=== PATIENT | female | born 1960 | race African-American/Black ===

== ENCOUNTER 2017-12-26 16:21 | Inpatient (IN) | payer OTHER ==
[2017-12-26 17:34] VITALS: BMI 47.0
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
[2017-12-26] MEDS ORDERED: MAGNESIUM HYDROX 2400MG/30ML ORAL SUSPENSION 30 ML CUP PO PRN (20:58)
[2017-12-26] MEDS ORDERED: MAG HYDROX/AL HYDROX/SIMETH 30 ML UNIT-DOSE CUP PO PRN (20:58)
[2017-12-26] MEDS ORDERED: MENTHOL/PHENOL 1 EACH UD MM PRN (20:58)
[2017-12-26] MEDS ORDERED: P-EPHED 60MG/TRIPROLIDI 2.5MG TABLET PO PRN (20:58)
[2017-12-26] MEDS ORDERED: LOPERAMIDE HCL 2 MG CAPSULE PO PRN (20:58)
[2017-12-26] MEDS ORDERED: MAGNESIUM CITRATE 300 ML BOTTLE PO PRN (20:58)
[2017-12-26] MEDS ORDERED: NICOTINE POLACRILEX 2 MG GUM BUC PRN (20:58)
[2017-12-26] MEDS ORDERED: hydrOXYzine PAMOATE 50 MG CAPSULE (FP) PO PRN (20:58)
[2017-12-26] MEDS ORDERED: ACETAMINOPHEN 325 MG TABLET (FP) PO PRN (20:58)
[2017-12-26] MEDS ORDERED: diazePAM 5 MG TABLET PO PRN (21:10)
[2017-12-26] MEDS ORDERED: diazePAM 5 MG TABLET PO ONE (21:45)
[2017-12-26] MEDS ORDERED: MELATONIN 5 MG TABLETS PO PRN (22:00)
[2017-12-26] MEDS: diazePAM 5 MG TABLET PO SCH (22:45)
[2017-12-26] MEDS: TOLNAFTATE 1% CREAM 15 GM TUBE TP SCH (23:09)
[2017-12-26] MEDS: TOLNAFTATE 1% POWDER 45 GM POW TP SCH (23:09)
[2017-12-26] MEDS: THIAMINE HCL 100 MG TABLET (FP) PO SCH (23:10)
[2017-12-27] MEDS: diazePAM 5 MG TABLET PO SCH ×3 (06:13→22:26)
--- NOTE | 2017-12-27 06:17 | PN ---
[facility] Progress Note Note: seen for alleged fall. client reports falling out of bed landing on her knees. she denies dizziness, sob, c.p. pain, hitting her head or any injuries seen lying in bed nad obese.a/o x3 ncat, perrlA, EOMI SKIN INTACT BACK- DENIES PAIN/TENDERNESS EXTREMITIES-FROM X4 W/O LIMITATION OR PAIN Vital Signs Temperature 97.9 F 12/27/17 06:24 Pulse Rate 81 12/27/17 06:24 Respiratory Rate 20 12/27/17 06:24 Blood Pressure 104/56 12/27/17 06:24 O2 Sat by Pulse Oximetry (%) D/W CLIENT NEED FOR HEAD CT DUE TO UNWITNESSED FALL. CLIENT BECAME UPSET AND STATED THAT SHE IS NOT GOING TO THE HOSPITAL. RISK DISCUSSED TO INCLUDE INTERNAL BLEEDING AND POSSIBLE . CLIENT VERBALIZED UNDERSTANDING, SIGNED REFUSAL OF TXMENT FORM. A- ALLEGED FALL P- FALL PROTOCOL #1 HALF RAILS UP ON BED TO ASSIST WITH BED MOBILITY FALL RISK PRECAUTIONS CONT TO MONITOR CLINICALLY TYLENOL/MOTRIN FOR ANY C/O OF DELAYED PAIN
[2017-12-27] MEDS: metFORMIN HCL 500 MG TABLET (FP) PO SCH ×2 (08:00→17:14)
--- NOTE | 2017-12-27 09:47 | PN ---
BHS CIWA - CIWA Score Nausea/Vomitin-Mild Nausea/No Vomiting Muscle Tremors: 1-None Visible, but [place] Anxiety: 1-Mildly Anxious Agitation: 1-Slight > Activity Paroxysmal Sweats: 2 Orientation: 0-Oriented Tacttile Disturbances: 2-Mild Itch/Numbness/Burn Auditory Disturbances: 0-None Visual Disturbances: 0-None Headache: 0-None Present CIWA-Ar Total Score: 8 BHS Progress Note (SOAP) Subjective: i have let knee pain , interrupted sleep, Objective: 12/27/17 09:43 Vital Signs Temperature 97 F L 12/27/17 08:00 Pulse Rate 74 12/27/17 08:00 Respiratory Rate 20 12/27/17 08:00 Blood Pressure 109/63 12/27/17 08:00 O2 Sat by Pulse Oximetry (%) morbidly obese f pt lying in bed sleeping easyily aroused , responding appropriately in nad and cooperative left knee no skin changes,injuries good rom Assessment: 12/27/17 09:45 withdrawal sx's left knee pain - likely OA morbid obesity Plan: cont. detox increase fluids analgesic cream bid f/up pending labs
[2017-12-27 09:57] LABS: HEMATOCRIT 41.9 % (32.4-45.2); HEMOGLOBIN 13.9 GM/dL (10.7-15.3); MCH 31.2 pg (25.7-33.7); MCHC 33.1 g/dl (32.0-36.0); MEAN CELL VOLUME 94.1 fl (80-96); MEAN PLT VOLUME 9.4 fl (7.5-11.1); PLATELET COUNT 204 K/MM3 (134-434); RBC 4.45 M/mm3 (3.60-5.2); RDW 14.5 % (11.6-15.6); WHITE BLOOD COUNT 6.6 K/mm3 (4.0-10.0)
[2017-12-27] MEDS: TETRAHYDROZOLINE HCL EYE DROPS OU PRN (10:11)
[2017-12-27] MEDS: ENALAPRIL MALEATE 10 MG TABLET (FP) PO SCH ×2 (10:12→22:27)
[2017-12-27] MEDS: ISOSORBIDE MONONITRATE 30 MG TAB.SR.24H (FP) PO SCH (10:12)
[2017-12-27] MEDS: PRENATAL VITAMINS W/ FOLIC ACID TABLET (FP) PO SCH (10:12)
[2017-12-27] MEDS: TOLNAFTATE 1% CREAM 15 GM TUBE TP SCH ×2 (10:13→22:28)
[2017-12-27] MEDS: amLODIPine BESYLATE 10 MG TABLET (FP) PO SCH (10:13)
[2017-12-27] MEDS: FUROSEMIDE 20 MG TABLET (FP) PO SCH ×2 (10:13→22:27)
[2017-12-27] MEDS: NICOTINE 21 MG/24 HOURS TOPICAL PATCH TD SCH (10:13)
[2017-12-27] MEDS: TOLNAFTATE 1% POWDER 45 GM POW TP SCH ×2 (10:14→22:28)
[2017-12-27 10:47] LABS: CHLORIDE 105 mmol/L (98-107); POTASSIUM 4.1 mmol/L (3.5-5.1); SODIUM 142 mmol/L (136-145)
[2017-12-27 10:55] LABS: ALBUMIN 2.9 g/dl (3.4-5.0); ALK PHOS 42 U/L (45-117); ANION GAP 6 (8-16); BILIRUBIN,TOTAL 0.1 mg/dL (0.2-1.0); BLOOD UREA NITROGEN 17 mg/dL (7-18); CALCIUM 8.5 mg/dL (8.5-10.1); CO2 31 mmol/L (21-32); CREATININE 0.9 mg/dL (0.55-1.02); GLUCOSE,RANDOM 96 mg/dL (74-106); SGOT/AST 13 U/L (15-37); SGPT/ALT 18 U/L (12-78); TOT PROT 6.4 g/dl (6.4-8.2)
[2017-12-27] MEDS: METHYL SALICYLATE/MENTHOL OINT 30 GM TUBE TP SCH ×2 (11:00→22:26)
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
[2017-12-27] MEDS: BENZTROPINE MESYLATE 1 MG TABLET (FP) PO SCH (15:46)
[2017-12-27] MEDS: THIAMINE HCL 100 MG TABLET (FP) PO SCH (22:28)
[2017-12-27] MEDS: ATORVASTATIN CA 10 MG TABLET (FP) PO SCH (22:30)
[2017-12-27] MEDS: DIVALPROEX SODIUM 500 MG TABLET E.C. PO SCH (22:30)
[2017-12-28] MEDS: metFORMIN HCL 500 MG TABLET (FP) PO SCH ×2 (08:41→17:43)
--- NOTE | 2017-12-28 09:03 | EKG ---
Test Reason : Blood Pressure : / mmHG Vent. Rate : 091 BPM Atrial Rate : 091 BPM P-R Int : 124 ms QRS Dur : 074 ms QT Int : 378 ms P-R-T Axes : 073 075 014 degrees QTc Int : 464 ms POOR DATA QUALITY, INTERPRETATION MAY BE ADVERSELY AFFECTED NORMAL SINUS RHYTHM NORMAL ECG NO PREVIOUS ECGS AVAILABLE Confirmed by JOSUE BAJWA MD ([id number]) on 12/28/2017 9:03:29 AM Referred By: Confirmed By:JOSUE BAJWA MD
[2017-12-28 10:29] LABS: URINE APPEARANCE SLCLOUDY; URINE BILIRUBIN NEGATIVE (<2.0 mg/dL); URINE COLOR LTYELLOW; URINE GLUCOSE (UA) NEGATIVE (NEGATIVE); URINE KETONE NEGATIVE (NEGATIVE); URINE LEUK ESTERASE NEGATIVE (NEGATIVE); URINE NITRITE NEGATIVE (NEGATIVE); URINE PROTEIN NEGATIVE (NEGATIVE)
[2017-12-28] MEDS: PRENATAL VITAMINS W/ FOLIC ACID TABLET (FP) PO SCH (10:49)
[2017-12-28] MEDS: DIVALPROEX SODIUM 500 MG TABLET E.C. PO SCH ×2 (10:49→22:21)
[2017-12-28] MEDS: diazePAM 5 MG TABLET PO SCH ×2 (10:49→22:17)
[2017-12-28] MEDS: FUROSEMIDE 20 MG TABLET (FP) PO SCH ×2 (10:49→22:17)
[2017-12-28] MEDS: amLODIPine BESYLATE 10 MG TABLET (FP) PO SCH (10:49)
[2017-12-28] MEDS: METHYL SALICYLATE/MENTHOL OINT 30 GM TUBE TP SCH ×2 (10:49→22:19)
[2017-12-28] MEDS: ENALAPRIL MALEATE 10 MG TABLET (FP) PO SCH ×2 (10:49→22:15)
[2017-12-28] MEDS: ISOSORBIDE MONONITRATE 30 MG TAB.SR.24H (FP) PO SCH (10:49)
[2017-12-28] MEDS: BENZTROPINE MESYLATE 1 MG TABLET (FP) PO SCH (10:49)
[2017-12-28] MEDS: TOLNAFTATE 1% CREAM 15 GM TUBE TP SCH ×2 (10:50→23:34)
[2017-12-28] MEDS: NICOTINE 21 MG/24 HOURS TOPICAL PATCH TD SCH (10:50)
[2017-12-28] MEDS: TOLNAFTATE 1% POWDER 45 GM POW TP SCH ×2 (10:50→23:34)
--- NOTE | 2017-12-28 13:57 | PN ---
S CIWA - CIWA Score Nausea/Vomitin Muscle Tremors: 3 Anxiety: 3 Agitation: 2 Paroxysmal Sweats: 1-Minimal Palms Moist Orientation: 0-Oriented Tacttile Disturbances: 1-Very Mild Itch/Numbness Auditory Disturbances: 1-Very Mild Visual Disturbances: 0-None Headache: 2-Mild CIWA-Ar Total Score: 16 BHS Progress Note (SOAP) Subjective: alert,irritable,anxious,interrupted sleep,tremor Objective: 12/28/17 13:56 Vital Signs Temperature 98.6 F 12/28/17 10:05 Pulse Rate 77 12/28/17 10:05 Respiratory Rate 16 12/28/17 10:05 Blood Pressure 147/60 12/28/17 10:05 O2 Sat by Pulse Oximetry (%) Laboratory Last Values WBC 6.6 K/mm3 (4.0-10.0) 12/27/17 07:40 RBC 4.45 M/mm3 (3.60-5.2) 12/27/17 07:40 Hgb 13.9 GM/dL (10.7-15.3) 12/27/17 07:40 Hct 41.9 % (32.4-45.2) 12/27/17 07:40 MCV 94.1 fl (80-96) 12/27/17 07:40 MCH 31.2 pg (25.7-33.7) 12/27/17 07:40 MCHC 33.1 g/dl (32.0-36.0) 12/27/17 07:40 RDW 14.5 % (11.6-15.6) 12/27/17 07:40 Plt Count 204 K/MM3 (134-434) 12/27/17 07:40 MPV 9.4 fl (7.5-11.1) D 12/27/17 07:40 Sodium 142 mmol/L (136-145) 12/27/17 07:40 Potassium 4.1 mmol/L (3.5-5.1) 12/27/17 07:40 Chloride 105 mmol/L (98-107) 12/27/17 07:40 Carbon Dioxide 31 mmol/L (21-32) 12/27/17 07:40 Anion Gap 6 (8-16) L 12/27/17 07:40 BUN 17 mg/dL (7-18) 12/27/17 07:40 Creatinine 0.9 mg/dL (0.55-1.02) 12/27/17 07:40 Creat Clearance w eGFR > 60 (>60) 12/27/17 07:40 POC Glucometer 105 UNITS (80-120) 12/28/17 11:05 Random Glucose 96 mg/dL (74-106) 12/27/17 07:40 Calcium 8.5 mg/dL (8.5-10.1) 12/27/17 07:40 Total Bilirubin 0.1 mg/dL (0.2-1.0) L 12/27/17 07:40 AST 13 U/L (15-37) L 12/27/17 07:40 ALT 18 U/L (12-78) 12/27/17 07:40 Alkaline Phosphatase 42 U/L (45-117) L 12/27/17 07:40 Total Protein 6.4 g/dl (6.4-8.2) 12/27/17 07:40 Albumin 2.9 g/dl (3.4-5.0) L 12/27/17 07:40 Urine Color Ltyellow 12/28/17 09:00 Urine Appearance Slcloudy 12/28/17 09:00 Urine pH 7.0 (5.0-8.0) 12/28/17 09:00 Ur Specific [place] 1.012 (1.001-1.035) 12/28/17 09:00 Urine Protein Negative (NEGATIVE) 12/28/17 09:00 Urine Glucose (UA) Negative (NEGATIVE) 12/28/17 09:00 Urine Ketones Negative (NEGATIVE) 12/28/17 09:00 Urine Blood Negative (NEGATIVE) 12/28/17 09:00 Urine Nitrite Negative (NEGATIVE) 12/28/17 09:00 Urine Bilirubin Negative (<2.0 mg/dL) 12/28/17 09:00 Urine Urobilinogen 2.0 mg/dL (0.2-1.0) H 12/28/17 09:00 Ur Leukocyte Esterase Negative (NEGATIVE) 12/28/17 09:00 Valproic Acid 21.8 ug/ml (50-100) L 12/28/17 08:00 Assessment: 12/28/17 13:57 withdrawal symptom Plan: continue detox,bgm monitoring
[2017-12-28] MEDS: THIAMINE HCL 100 MG TABLET (FP) PO SCH (22:15)
[2017-12-28] MEDS: ATORVASTATIN CA 10 MG TABLET (FP) PO SCH (22:17)
[2017-12-28] MEDS: IBUPROFEN 400 MG TABLET (FP) PO PRN (22:18)
[2017-12-29] MEDS: metFORMIN HCL 500 MG TABLET (FP) PO SCH ×2 (06:27→17:18)
[2017-12-29] MEDS: diazePAM 5 MG TABLET PO SCH ×2 (10:27→22:22)
[2017-12-29] MEDS: amLODIPine BESYLATE 10 MG TABLET (FP) PO SCH (10:28)
[2017-12-29] MEDS: DIVALPROEX SODIUM 500 MG TABLET E.C. PO SCH ×2 (10:28→22:22)
[2017-12-29] MEDS: ENALAPRIL MALEATE 10 MG TABLET (FP) PO SCH ×2 (10:28→22:22)
[2017-12-29] MEDS: ISOSORBIDE MONONITRATE 30 MG TAB.SR.24H (FP) PO SCH (10:28)
[2017-12-29] MEDS: BENZTROPINE MESYLATE 1 MG TABLET (FP) PO SCH (10:28)
[2017-12-29] MEDS: FUROSEMIDE 20 MG TABLET (FP) PO SCH ×2 (10:28→22:22)
[2017-12-29] MEDS: TOLNAFTATE 1% CREAM 15 GM TUBE TP SCH ×2 (10:29→22:23)
[2017-12-29] MEDS: NICOTINE 21 MG/24 HOURS TOPICAL PATCH TD SCH (10:29)
[2017-12-29] MEDS: METHYL SALICYLATE/MENTHOL OINT 30 GM TUBE TP SCH ×2 (10:29→22:23)
[2017-12-29] MEDS: TOLNAFTATE 1% POWDER 45 GM POW TP SCH ×2 (10:29→22:23)
[2017-12-29] MEDS: PRENATAL VITAMINS W/ FOLIC ACID TABLET (FP) PO SCH (10:30)
[2017-12-29] MEDS: guaiFENesin/D-METHORPHAN HB 10 ML UNIT-DOSE CUPS PO PRN ×2 (10:32→22:26)
--- NOTE | 2017-12-29 14:08 | PN ---
[facility] Progress Note (SOAP) Subjective: feeling better less sweat no tremor no gi distress less anxiousness Objective: 12/29/17 14:07 Vital Signs Temperature 98.1 F 12/29/17 10:53 Pulse Rate 84 12/29/17 10:53 Respiratory Rate 18 12/29/17 10:53 Blood Pressure 124/58 12/29/17 10:53 O2 Sat by Pulse Oximetry (%) Laboratory Last Values WBC 6.6 K/mm3 (4.0-10.0) 12/27/17 07:40 RBC 4.45 M/mm3 (3.60-5.2) 12/27/17 07:40 Hgb 13.9 GM/dL (10.7-15.3) 12/27/17 07:40 Hct 41.9 % (32.4-45.2) 12/27/17 07:40 MCV 94.1 fl (80-96) 12/27/17 07:40 MCH 31.2 pg (25.7-33.7) 12/27/17 07:40 MCHC 33.1 g/dl (32.0-36.0) 12/27/17 07:40 RDW 14.5 % (11.6-15.6) 12/27/17 07:40 Plt Count 204 K/MM3 (134-434) 12/27/17 07:40 MPV 9.4 fl (7.5-11.1) D 12/27/17 07:40 Sodium 142 mmol/L (136-145) 12/27/17 07:40 Potassium 4.1 mmol/L (3.5-5.1) 12/27/17 07:40 Chloride 105 mmol/L (98-107) 12/27/17 07:40 Carbon Dioxide 31 mmol/L (21-32) 12/27/17 07:40 Anion Gap 6 (8-16) L 12/27/17 07:40 BUN 17 mg/dL (7-18) 12/27/17 07:40 Creatinine 0.9 mg/dL (0.55-1.02) 12/27/17 07:40 Creat Clearance w eGFR > 60 (>60) 12/27/17 07:40 POC Glucometer 94 UNITS (80-120) 12/29/17 05:45 Random Glucose 96 mg/dL (74-106) 12/27/17 07:40 Calcium 8.5 mg/dL (8.5-10.1) 12/27/17 07:40 Total Bilirubin 0.1 mg/dL (0.2-1.0) L 12/27/17 07:40 AST 13 U/L (15-37) L 12/27/17 07:40 ALT 18 U/L (12-78) 12/27/17 07:40 Alkaline Phosphatase 42 U/L (45-117) L 12/27/17 07:40 Total Protein 6.4 g/dl (6.4-8.2) 12/27/17 07:40 Albumin 2.9 g/dl (3.4-5.0) L 12/27/17 07:40 Urine Color Ltyellow 12/28/17 09:00 Urine Appearance Slcloudy 12/28/17 09:00 Urine pH 7.0 (5.0-8.0) 12/28/17 09:00 Ur Specific [place] 1.012 (1.001-1.035) 12/28/17 09:00 Urine Protein Negative (NEGATIVE) 12/28/17 09:00 Urine Glucose (UA) Negative (NEGATIVE) 12/28/17 09:00 Urine Ketones Negative (NEGATIVE) 12/28/17 09:00 Urine Blood Negative (NEGATIVE) 12/28/17 09:00 Urine Nitrite Negative (NEGATIVE) 12/28/17 09:00 Urine Bilirubin Negative (<2.0 mg/dL) 12/28/17 09:00 Urine Urobilinogen 2.0 mg/dL (0.2-1.0) H 12/28/17 09:00 Ur Leukocyte Esterase Negative (NEGATIVE) 12/28/17 09:00 Valproic Acid 21.8 ug/ml (50-100) L 12/28/17 08:00 RPR Titer Nonreactive (NONREACTIVE) 12/27/17 07:40 lab noted Assessment: 12/29/17 14:07 mild withdrawal sx Plan: medically supervised detox
[2017-12-29] MEDS: ATORVASTATIN CA 10 MG TABLET (FP) PO SCH (22:22)
[2017-12-29] MEDS: THIAMINE HCL 100 MG TABLET (FP) PO SCH (22:22)
[2017-12-29] MEDS: IBUPROFEN 400 MG TABLET (FP) PO PRN (22:24)
[2017-12-30] MEDS: metFORMIN HCL 500 MG TABLET (FP) PO SCH (06:40)
[2017-12-30] MEDS: IBUPROFEN 400 MG TABLET (FP) PO PRN (06:42)
[2017-12-30] MEDS: guaiFENesin/D-METHORPHAN HB 10 ML UNIT-DOSE CUPS PO PRN (06:44)
--- NOTE | 2017-12-30 09:50 | PN ---
S Progress Note (SOAP) Subjective: alert,no complaint Objective: 12/30/17 09:46 Vital Signs Temperature 97.9 F 12/30/17 07:13 Pulse Rate 73 12/30/17 07:13 Respiratory Rate 18 12/30/17 07:13 Blood Pressure 127/72 12/30/17 07:13 O2 Sat by Pulse Oximetry (%) Assessment: 12/30/17 09:48 detox completed no withdrawal symptom Plan: discharge today,follow up with [facility] as arrangement
--- NOTE | 2017-12-30 09:56 | DS ---
[facility] Detox Discharge Summary Admission Date: 12/26/17 Discharge Date: 12/30/17 - History Present History: Alcohol Dependence, Cocaine Dependence Additional Comments: follow up with [facility] as arrangement Pertinent Past History: type 2 dm hypertension morbid obesity osteoarthritis schizophrenia - Physical Exam Results Vital Signs: Vital Signs Temperature 97.9 F 12/30/17 07:13 Pulse Rate 73 12/30/17 07:13 Respiratory Rate 18 12/30/17 07:13 Blood Pressure 127/72 12/30/17 07:13 O2 Sat by Pulse Oximetry (%) Pertinent Admission Physical Exam Findings: withdrawal symptom Laboratory Last Values WBC 6.6 K/mm3 (4.0-10.0) 12/27/17 07:40 RBC 4.45 M/mm3 (3.60-5.2) 12/27/17 07:40 Hgb 13.9 GM/dL (10.7-15.3) 12/27/17 07:40 Hct 41.9 % (32.4-45.2) 12/27/17 07:40 MCV 94.1 fl (80-96) 12/27/17 07:40 MCH 31.2 pg (25.7-33.7) 12/27/17 07:40 MCHC 33.1 g/dl (32.0-36.0) 12/27/17 07:40 RDW 14.5 % (11.6-15.6) 12/27/17 07:40 Plt Count 204 K/MM3 (134-434) 12/27/17 07:40 MPV 9.4 fl (7.5-11.1) D 12/27/17 07:40 Sodium 142 mmol/L (136-145) 12/27/17 07:40 Potassium 4.1 mmol/L (3.5-5.1) 12/27/17 07:40 Chloride 105 mmol/L (98-107) 12/27/17 07:40 Carbon Dioxide 31 mmol/L (21-32) 12/27/17 07:40 Anion Gap 6 (8-16) L 12/27/17 07:40 BUN 17 mg/dL (7-18) 12/27/17 07:40 Creatinine 0.9 mg/dL (0.55-1.02) 12/27/17 07:40 Creat Clearance w eGFR > 60 (>60) 12/27/17 07:40 POC Glucometer 113 UNITS (80-120) 12/30/17 06:37 Random Glucose 96 mg/dL (74-106) 12/27/17 07:40 Calcium 8.5 mg/dL (8.5-10.1) 12/27/17 07:40 Total Bilirubin 0.1 mg/dL (0.2-1.0) L 12/27/17 07:40 AST 13 U/L (15-37) L 12/27/17 07:40 ALT 18 U/L (12-78) 12/27/17 07:40 Alkaline Phosphatase 42 U/L (45-117) L 12/27/17 07:40 Total Protein 6.4 g/dl (6.4-8.2) 12/27/17 07:40 Albumin 2.9 g/dl (3.4-5.0) L 12/27/17 07:40 Urine Color Ltyellow 12/28/17 09:00 Urine Appearance Slcloudy 12/28/17 09:00 Urine pH 7.0 (5.0-8.0) 12/28/17 09:00 Ur Specific [place] 1.012 (1.001-1.035) 12/28/17 09:00 Urine Protein Negative (NEGATIVE) 12/28/17 09:00 Urine Glucose (UA) Negative (NEGATIVE) 12/28/17 09:00 Urine Ketones Negative (NEGATIVE) 12/28/17 09:00 Urine Blood Negative (NEGATIVE) 12/28/17 09:00 Urine Nitrite Negative (NEGATIVE) 12/28/17 09:00 Urine Bilirubin Negative (<2.0 mg/dL) 12/28/17 09:00 Urine Urobilinogen 2.0 mg/dL (0.2-1.0) H 12/28/17 09:00 Ur Leukocyte Esterase Negative (NEGATIVE) 12/28/17 09:00 Valproic Acid 21.8 ug/ml (50-100) L 12/28/17 08:00 RPR Titer Nonreactive (NONREACTIVE) 12/27/17 07:40 Vital Signs Temperature 97.9 F 12/30/17 07:13 Pulse Rate 73 12/30/17 07:13 Respiratory Rate 18 12/30/17 07:13 Blood Pressure 127/72 12/30/17 07:13 O2 Sat by Pulse Oximetry (%) - Treatment Hospital Course: Detox Protocol Followed - Medication Discharge Medications: Ambulatory Orders Benztropine Mesylate 1 mg PO DAILY 12/26/17 Benztropine Mesylate 2 mg PO HS 12/26/17 Amlodipine Besylate [Norvasc -] 10 mg PO DAILY #30 tablet 12/29/17 Atorvastatin Ca [Lipitor] 10 mg PO HS #60 tablet 12/29/17 Enalapril Maleate [Vasotec] 20 mg PO BID #60 tablet 12/29/17 Furosemide 20 mg PO BID #30 tablet 12/29/17 Isosorbide Mononitrate [Imdur -] 30 mg PO DAILY #60 tab.sr.24h 12/29/17 metFORMIN HCL [Glucophage -] 500 mg PO BIDI #60 tablet 12/29/17 - Diagnosis (1) Alcohol dependence with uncomplicated withdrawal Current Visit: Yes Status: Chronic (2) Cocaine dependence Current Visit: Yes Status: Chronic (3) HTN (hypertension) Current Visit: Yes Status: Chronic Qualifiers: Hypertension type: essential hypertension Qualified Code(s): I10 - Essential (primary) hypertension (4) Osteoarthritis Current Visit: Yes Status: Chronic (5) Obesity Current Visit: No Status: Active (6) Schizoaffective disorder Current Visit: No Status: Chronic (7) Hyperlipidemia Current Visit: Yes Status: Chronic Qualifiers: Hyperlipidemia type: unspecified Qualified Code(s): E78.5 - Hyperlipidemia , unspecified (8) Nicotine dependence Current Visit: Yes Status: Chronic (9) Type II diabetes mellitus Current Visit: Yes Status: Chronic Qualifiers: Diabetes mellitus complication status: with unspecified complications - AMA Did Patient Leave Against Medical Advice: No
[2017-12-30 09:57] VITALS: BP 108/55; PULSE 80; TEMP 98.2
[2017-12-30] MEDS ORDERED: diazePAM 5 MG TABLET PO SCH (10:00)
[2017-12-30] MEDS: DIVALPROEX SODIUM 500 MG TABLET E.C. PO SCH (10:13)
[2017-12-30] MEDS: BENZTROPINE MESYLATE 1 MG TABLET (FP) PO SCH (10:13)
[2017-12-30] MEDS: FUROSEMIDE 20 MG TABLET (FP) PO SCH (10:14)
[2017-12-30] MEDS: TOLNAFTATE 1% POWDER 45 GM POW TP SCH (10:14)
[2017-12-30] MEDS: TOLNAFTATE 1% CREAM 15 GM TUBE TP SCH (10:14)
[2017-12-30] MEDS: PRENATAL VITAMINS W/ FOLIC ACID TABLET (FP) PO SCH (10:14)
[2017-12-30] MEDS: ENALAPRIL MALEATE 10 MG TABLET (FP) PO SCH (10:14)
[2017-12-30] MEDS: amLODIPine BESYLATE 10 MG TABLET (FP) PO SCH (10:14)
[2017-12-30] MEDS: ISOSORBIDE MONONITRATE 30 MG TAB.SR.24H (FP) PO SCH (10:15)
[2017-12-30] MEDS: NICOTINE 21 MG/24 HOURS TOPICAL PATCH TD SCH (10:15)
[2017-12-30] MEDS: TETRAHYDROZOLINE HCL EYE DROPS OU PRN (10:16)
[2017-12-30] MEDS: METHYL SALICYLATE/MENTHOL OINT 30 GM TUBE TP SCH (10:26)
== END 2017-12-30 12:42 | disposition other institution (70) | DRG 774 ==
LOC: YASAS 16:21 → Y6N 21:41
PROVIDERS: ADMIT Surgery; ATTEND Surgery
PROC: HZ2ZZZZ Detoxification Services for Substance Abuse Treatment (ICD-10-PCS; principal; 2017-12-26)
DX: F10.230 Alcohol dependence with withdrawal, uncomplicated (principal); F14.20 Cocaine dependence, uncomplicated; F17.210 Nicotine dependence, cigarettes, uncomplicated; F25.9 Schizoaffective disorder, unspecified; I10 Essential (primary) hypertension; E11.9 Type 2 diabetes mellitus without complications; R01.1 Cardiac murmur, unspecified; M19.90 Unspecified osteoarthritis, unspecified site; E78.5 Hyperlipidemia, unspecified; B35.3 Tinea pedis; H10.13 Acute atopic conjunctivitis, bilateral; E66.01 Morbid (severe) obesity due to excess calories; Z68.42 Body mass index [BMI] 45.0-49.9, adult; Z90.710 Acquired absence of both cervix and uterus; W06.XXXA Fall from bed, initial encounter; Z91.81 History of falling; Y93.89 Activity, other specified; Y92.230 Patient room in hospital as the place of occurrence of the external cause; Z91.5 Personal history of self-harm
CPT/HCPCS: 36415; 80053; 80164; 81003; 82962; 85027; 86593; 93005; 93010

== ENCOUNTER 2017-12-30 13:38 | Inpatient (IN) | payer OTHER ==
[2017-12-30] MEDS ORDERED: guaiFENesin/D-METHORPHAN HB 10 ML UNIT-DOSE CUPS PO PRN (14:09)
[2017-12-30] MEDS ORDERED: MENTHOL/PHENOL 1 EACH UD MM PRN (14:09)
[2017-12-30] MEDS ORDERED: LOPERAMIDE HCL 2 MG CAPSULE PO PRN (14:09)
[2017-12-30] MEDS ORDERED: MAGNESIUM HYDROX 2400MG/30ML ORAL SUSPENSION 30 ML CUP PO PRN (14:09)
[2017-12-30] MEDS ORDERED: MAG HYDROX/AL HYDROX/SIMETH 30 ML UNIT-DOSE CUP PO PRN (14:09)
[2017-12-30] MEDS ORDERED: hydrOXYzine PAMOATE 50 MG CAPSULE (FP) PO PRN (14:09)
[2017-12-30] MEDS ORDERED: MAGNESIUM CITRATE 300 ML BOTTLE PO PRN (14:09)
[2017-12-30] MEDS ORDERED: IBUPROFEN 400 MG TABLET (FP) PO PRN (14:09)
[2017-12-30] MEDS ORDERED: ACETAMINOPHEN 325 MG TABLET (FP) PO PRN (14:09)
[2017-12-30] MEDS ORDERED: P-EPHED 60MG/TRIPROLIDI 2.5MG TABLET PO PRN (14:09)
[2017-12-30] MEDS: metFORMIN HCL 500 MG TABLET (FP) PO SCH (16:50)
[2017-12-30] MEDS ORDERED: FUROSEMIDE 20 MG TABLET (FP) PO ONE (17:00)
--- NOTE | 2017-12-30 17:14 | HP ---
Psychiatrist Admission - Data Date of interview: 12/30/17 Admission source: [address] [place] [address] Identifying data: This is the second admission to [address] [place] [address] for this 57 yo AA female mother of 4,unemployed,supported by [facility], domiciled. Medical History: Significant for Obesity,HTN. Psychiatric History: Poor historian,but well known to this facility.Long and extensive psychiatric history started back in 1984.patient was dx with Schizoaffective disorder.Multiple psychiatric hospitalizations.She is under care of [facility],on Risperdal Consta 50 mg im every other week,next injection scheduled for Jan 01.She is on Cogentin 1 mg po daily and Depakote 500 mg po bid. Physical/Sexual Abuse/Trauma History: not willing to discuss Additional Comment: denies Allergies/Adverse Reactions: Allergies Allergy/AdvReac Type Severity Reaction Status Date / Time haloperidol Allergy Severe Difficulty Verified 12/26/17 22:28 Breathing Date of last physical exam: 12/26/17 Concur with the findings of this exam: Yes - Substance Abuse/Tx History Hx Alcohol Use: Yes (drinking since 16 yo,beer) Hx Substance Use: Yes (cocain e since 26 yo,spending about $150-200 daily) Substance Use Type: Alcohol, Cocaine Hx Substance Use Treatment: Yes (completed this program in July 2014) Mental Status Exam - Mental Status Exam Alert and Oriented to: Time, Place, Person Cognitive Function: Grossly Intact Patient Appearance: Unkempt Affect: Mood Congruent Patient Behavior: Passive, Cooperative Speech Pattern: Clear Voice Loudness: Normal Thought Process: Goal Oriented Thought Disorder: Not Present Hallucinations: Denies Suicidal Ideation: Denies Homicidal Ideation: Denies Insight/Judgement: Fair Sleep: Fair Appetite: Good Muscle strength/Tone: Normal Gait/Station: Normal Psychiatric Findings - Problem List ([place] 1, 2,3) (1) Alcohol dependence Current Visit: Yes Status: Chronic (2) Obesity Current Visit: Yes Status: Chronic (3) Allergic conjunctivitis Current Visit: Yes Status: Chronic Qualifiers: (4) Cocaine dependence Current Visit: Yes Status: Chronic (5) HTN (hypertension) Current Visit: Yes Status: Chronic Qualifiers: (6) Hyperlipidemia Current Visit: Yes Status: Chronic Qualifiers: (7) Schizoaffective disorder Current Visit: Yes Status: Chronic (8) Nicotine dependence Current Visit: Yes Status: Chronic (9) Obesity, morbid (more than 100 lbs over ideal weight or BMI > 40) Current Visit: Yes Status: Chronic (10) Osteoarthritis Current Visit: No Status: Chronic (11) Tinea pedis of both feet Current Visit: Yes Status: Chronic (12) Type II diabetes mellitus Current Visit: Yes Status: Chronic Qualifiers: Diabetes mellitus complication status: with unspecified complications - Initial Treatment Plan Initial Treatment Plan: Continue Depakote 500 mg po bid,Cogentin 1 mg po daily.
[2017-12-30] MEDS: DIVALPROEX SODIUM 500 MG TABLET E.C. PO SCH (21:45)
[2017-12-30] MEDS: THIAMINE HCL 100 MG TABLET (FP) PO SCH (21:45)
[2017-12-30] MEDS: ATORVASTATIN CA 10 MG TABLET (FP) PO SCH (21:45)
[2017-12-30] MEDS: ENALAPRIL MALEATE 10 MG TABLET (FP) PO SCH (21:47)
[2017-12-30] MEDS ORDERED: MELATONIN 5 MG TABLETS PO PRN (22:00)
[2017-12-31] MEDS: metFORMIN HCL 500 MG TABLET (FP) PO SCH ×2 (06:48→16:45)
[2017-12-31] MEDS: FUROSEMIDE 20 MG TABLET (FP) PO SCH ×2 (06:48→13:38)
[2017-12-31] MEDS: DIVALPROEX SODIUM 500 MG TABLET E.C. PO SCH ×2 (10:20→21:44)
[2017-12-31] MEDS: PRENATAL VITAMINS W/ FOLIC ACID TABLET (FP) PO SCH (10:20)
[2017-12-31] MEDS: amLODIPine BESYLATE 10 MG TABLET (FP) PO SCH (10:20)
[2017-12-31] MEDS: BENZTROPINE MESYLATE 1 MG TABLET (FP) PO SCH (10:20)
[2017-12-31] MEDS ORDERED: PT OWN MED DRAWER 7, Y5N ONE ×2 (10:21→21:46)
[2017-12-31] MEDS: ENALAPRIL MALEATE 10 MG TABLET (FP) PO SCH ×2 (10:22→21:44)
[2017-12-31] MEDS: ISOSORBIDE MONONITRATE 30 MG TAB.SR.24H (FP) PO SCH (10:22)
[2017-12-31] MEDS: THIAMINE HCL 100 MG TABLET (FP) PO SCH (21:44)
[2017-12-31] MEDS: ATORVASTATIN CA 10 MG TABLET (FP) PO SCH (21:44)
[2018-01-01] MEDS: FUROSEMIDE 20 MG TABLET (FP) PO SCH (06:52)
[2018-01-01] MEDS: metFORMIN HCL 500 MG TABLET (FP) PO SCH (06:54)
[2018-01-01 06:55] VITALS: TEMP 97.2
[2018-01-01] MEDS ORDERED: PT OWN MED DRAWER 7, Y5N ONE (08:42)
[2018-01-01] MEDS: DIVALPROEX SODIUM 500 MG TABLET E.C. PO SCH (09:05)
[2018-01-01] MEDS: ENALAPRIL MALEATE 10 MG TABLET (FP) PO SCH (09:05)
[2018-01-01] MEDS: PRENATAL VITAMINS W/ FOLIC ACID TABLET (FP) PO SCH (09:05)
[2018-01-01] MEDS: amLODIPine BESYLATE 10 MG TABLET (FP) PO SCH (09:05)
[2018-01-01] MEDS: ISOSORBIDE MONONITRATE 30 MG TAB.SR.24H (FP) PO SCH (09:05)
[2018-01-01] MEDS: BENZTROPINE MESYLATE 1 MG TABLET (FP) PO SCH (09:05)
[2018-01-01 09:24] VITALS: BP 134/62; PULSE 90
--- NOTE | 2018-01-01 10:19 | PN ---
[facility] Progress Note Note: Patient decided to sign out today.See counselour's note for details.Patient received injection of Risperdal 50 mg ,next will be scheduled in 2 weeks.
== END 2018-01-01 09:30 | disposition left against medical advice (07) | DRG 770 ==
LOC: YASAS 13:38 → Y3E 13:40
PROVIDERS: ADMIT Psychiatry & Neurology Psychiatry; ATTEND Psychiatry & Neurology Psychiatry
PROC: HZ42ZZZ Group Counseling for Substance Abuse Treatment, Cognitive-Behavioral (ICD-10-PCS; principal; 2017-12-30)
DX: F10.20 Alcohol dependence, uncomplicated (principal); F14.20 Cocaine dependence, uncomplicated; F17.210 Nicotine dependence, cigarettes, uncomplicated; F25.9 Schizoaffective disorder, unspecified; I10 Essential (primary) hypertension; E78.5 Hyperlipidemia, unspecified; E11.8 Type 2 diabetes mellitus with unspecified complications; M19.90 Unspecified osteoarthritis, unspecified site; H10.45 Other chronic allergic conjunctivitis; B35.3 Tinea pedis; E66.01 Morbid (severe) obesity due to excess calories; Z68.43 Body mass index [BMI] 50.0-59.9, adult; Z79.84 Long term (current) use of oral hypoglycemic drugs
CPT/HCPCS: 36415; 82962; 87389

== ENCOUNTER 2021-11-30 15:35 | Inpatient (IN) | payer OTHER ==
[2021-11-30] MEDS ORDERED: LOPERAMIDE HCL 2 MG CAPSULE PO PRN (18:10)
[2021-11-30] MEDS ORDERED: METHOCARBAMOL 500 MG TABLET PO PRN (18:10)
[2021-11-30] MEDS ORDERED: MAG HYDROX/AL HYDROX/SIMETH 30 ML UNIT-DOSE CUP PO PRN (18:10)
[2021-11-30] MEDS ORDERED: ACETAMINOPHEN 325 MG TABLET (FP) PO PRN ×2 (18:10)
[2021-11-30] MEDS ORDERED: BISMUTH SUBSALICYLATE 524 MG/30 ML PO PRN (18:10)
[2021-11-30] MEDS ORDERED: BENZOCAINE/MENTHOL (CHLORASEPTIC ) LOZENGE MM PRN (18:10)
[2021-11-30] MEDS ORDERED: MAGNESIUM CITRATE 300 ML BOTTLE PO PRN (18:10)
[2021-11-30] MEDS ORDERED: MAGNESIUM HYDROX 2400MG/30ML ORAL SUSPENSION 30 ML CUP PO PRN (18:10)
[2021-11-30] MEDS ORDERED: IBUPROFEN 600 MG TABLET (FP) PO PRN (18:10)
[2021-11-30] MEDS ORDERED: ONDANSETRON *ODT* 4 MG TABLET SL PRN (18:10)
[2021-11-30] MEDS ORDERED: DICYCLOMINE HCL 10 MG CAPSULE PO PRN (18:10)
[2021-11-30] MEDS ORDERED: NICOTINE 10 MG CARTRIDGE (INHALER) IH PRN (18:10)
[2021-11-30] MEDS ORDERED: hydrOXYzine PAMOATE 25 MG CAPSULE (FP) PO PRN (18:10)
[2021-11-30] MEDS ORDERED: LORazepam 1 MG TABLET PO PRN (18:10)
[2021-11-30] MEDS ORDERED: IBUPROFEN 400 MG TABLET (FP) PO PRN (18:10)
[2021-11-30] MEDS: THIAMINE HCL 100 MG TABLET (FP) PO SCH (23:27)
[2021-11-30] MEDS: LORazepam 2 MG TABLET PO SCH (23:27)
[2021-11-30] MEDS: ENALAPRIL MALEATE 10 MG TABLET PO SCH (23:27)
[2021-11-30] MEDS: MELATONIN 5 MG TABLETS PO SCH (23:27)
[2021-11-30] MEDS: ATORVASTATIN CA 10 MG TABLET (FP) PO SCH (23:27)
[2021-11-30] MEDS: NYSTATIN 100,000 UNIT/GM TOPICAL CREAM 15 GM TUBE TP SCH (23:59)
[2021-12-01] MEDS: LORazepam 2 MG TABLET PO SCH ×4 (06:46→23:06)
[2021-12-01] MEDS: metFORMIN HCL 500 MG TABLET (FP) PO SCH ×2 (07:35→17:57)
[2021-12-01] MEDS: ENALAPRIL MALEATE 10 MG TABLET PO SCH ×2 (10:27→23:07)
[2021-12-01] MEDS: NYSTATIN 100,000 UNIT/GM TOPICAL CREAM 15 GM TUBE TP SCH ×2 (10:27→23:07)
[2021-12-01] MEDS: ISOSORBIDE MONONITRATE 30 MG TAB.SR.24H (FP) PO SCH (10:27)
[2021-12-01] MEDS: PRENATAL VITAMINS W/ FOLIC ACID TABLET (FP) PO SCH (10:28)
[2021-12-01] MEDS: NICOTINE 7 MG/24 HOURS TOPICAL PATCH TD SCH (10:30)
[2021-12-01 14:18] LABS: HEMATOCRIT 46.2 % (32.4-45.2); HEMOGLOBIN 14.7 GM/dL (10.7-15.3); MCHC 31.9 g/dl (32.0-36.0); MEAN CELL VOLUME 97.3 fl (80-96); PLATELET COUNT 220 10^3/uL (134-434); RBC 4.75 M/mm3 (3.60-5.2); RDW 12.9 % (11.6-15.6)
[2021-12-01 14:34] LABS: CALCIUM 8.9 mg/dL (8.5-10.1)
[2021-12-01 14:38] LABS: CREATININE 0.7 mg/dL (0.55-1.3)
[2021-12-01 14:39] LABS: BILIRUBIN,TOTAL 0.2 mg/dL (0.2-1); TOT PROT 6.4 g/dl (6.4-8.2)
[2021-12-01] MEDS ORDERED: BENZTROPINE MESYLATE 2 MG TABLET PO SCH (22:00)
[2021-12-01] MEDS: MELATONIN 5 MG TABLETS PO SCH (23:06)
[2021-12-01] MEDS: DIVALPROEX SODIUM 500 MG TABLET E.C. PO SCH (23:07)
[2021-12-01] MEDS: THIAMINE HCL 100 MG TABLET (FP) PO SCH (23:07)
[2021-12-01] MEDS: ATORVASTATIN CA 10 MG TABLET (FP) PO SCH (23:07)
[2021-12-02] MEDS: LORazepam 1 MG TABLET PO SCH ×2 (06:31→10:37)
[2021-12-02] MEDS: metFORMIN HCL 500 MG TABLET (FP) PO SCH (08:39)
[2021-12-02] MEDS: PRENATAL VITAMINS W/ FOLIC ACID TABLET (FP) PO SCH (10:34)
[2021-12-02] MEDS: ENALAPRIL MALEATE 10 MG TABLET PO SCH (10:34)
[2021-12-02] MEDS: DIVALPROEX SODIUM 500 MG TABLET E.C. PO SCH (10:34)
[2021-12-02] MEDS: NYSTATIN 100,000 UNIT/GM TOPICAL CREAM 15 GM TUBE TP SCH (10:35)
[2021-12-02] MEDS: ISOSORBIDE MONONITRATE 30 MG TAB.SR.24H (FP) PO SCH (10:36)
[2021-12-02] MEDS: NICOTINE 7 MG/24 HOURS TOPICAL PATCH TD SCH (10:41)
[2021-12-02 13:46] VITALS: BP 149/81; PULSE 82; TEMP 97
[2021-12-03] MEDS ORDERED: LORazepam 0.5 MG TABLET PO PRN
[2021-12-03] MEDS ORDERED: LORazepam 0.5 MG TABLET PO SCH (05:00)
[2021-12-04] MEDS ORDERED: LORazepam 0.5 MG TABLET PO ONE (05:00)
== END 2021-12-02 16:17 | disposition home or self-care (01) | DRG 774 ==
LOC: YASAS 15:35 → Y3N 19:18
PROVIDERS: ADMIT Allergy & Immunology; ATTEND Surgery
PROC: HZ2ZZZZ Detoxification Services for Substance Abuse Treatment (ICD-10-PCS; principal; 2021-11-30)
DX: F10.230 Alcohol dependence with withdrawal, uncomplicated (principal); F14.20 Cocaine dependence, uncomplicated; F17.210 Nicotine dependence, cigarettes, uncomplicated; F25.9 Schizoaffective disorder, unspecified; F32.A Depression, unspecified; E78.2 Mixed hyperlipidemia; I10 Essential (primary) hypertension; E11.52 Type 2 diabetes mellitus with diabetic peripheral angiopathy with gangrene; Z79.84 Long term (current) use of oral hypoglycemic drugs; M54.50 Low back pain, unspecified; G89.29 Other chronic pain; B36.8 Other specified superficial mycoses; E66.01 Morbid (severe) obesity due to excess calories; Z68.43 Body mass index [BMI] 50.0-59.9, adult; Z88.8 Allergy status to other drugs, medicaments and biological substances
CPT/HCPCS: 36415; 80053; 82962; 85027; 86593; 86780; C9803-CS; U0003; U0005

== ENCOUNTER 2022-02-10 15:52 | Inpatient (IN) | payer OTHER ==
[2022-02-10 17:22] VITALS: BMI 50.1
[2022-02-10] MEDS ORDERED: MAG HYDROX/AL HYDROX/SIMETH 30 ML UNIT-DOSE CUP PO PRN (17:46)
[2022-02-10] MEDS ORDERED: LOPERAMIDE HCL 2 MG CAPSULE PO PRN (17:46)
[2022-02-10] MEDS ORDERED: MAGNESIUM CITRATE 300 ML BOTTLE PO PRN (17:46)
[2022-02-10] MEDS ORDERED: MAGNESIUM HYDROX 2400MG/30ML ORAL SUSPENSION 30 ML CUP PO PRN (17:46)
[2022-02-10] MEDS ORDERED: P-EPHED 60MG/TRIPROLIDI 2.5MG TABLET PO PRN (17:46)
[2022-02-10] MEDS ORDERED: ISOSORBIDE MONONITRATE 60 MG TAB.SR.24H (FP) PO SCH (18:00)
[2022-02-10] MEDS: ASPIRIN COATED 81 MG TABLET.EC PO SCH (22:56)
[2022-02-10] MEDS: ISOSORBIDE MONONITRATE 30 MG TAB.SR.24H (FP) PO SCH (22:56)
[2022-02-10] MEDS: MELATONIN 5 MG TABLETS PO PRN (23:23)
[2022-02-10] MEDS: ENALAPRIL MALEATE 10 MG TABLET PO SCH (23:23)
[2022-02-10] MEDS: INSULIN SLIDING SCALE (NOVOLOG) 1 VIAL SQ SCH (23:23)
[2022-02-10] MEDS: IBUPROFEN 400 MG TABLET (FP) PO PRN (23:23)
[2022-02-10] MEDS: THIAMINE HCL 100 MG TABLET (FP) PO SCH (23:23)
[2022-02-10] MEDS: ATORVASTATIN CA 10 MG TABLET (FP) PO SCH (23:23)
[2022-02-10] MEDS: guaiFENesin 200 MG/10 ML 10 ML UNIT-DOSE CUPS PO PRN (23:24)
[2022-02-11] MEDS: metFORMIN HCL 500 MG TABLET (FP) PO SCH ×2 (07:07→17:22)
[2022-02-11] MEDS: INSULIN SLIDING SCALE (NOVOLOG) 1 VIAL SQ SCH ×4 (07:09→23:16)
[2022-02-11 11:00] LABS: HEMATOCRIT 38.6 % (32.4-45.2); HEMOGLOBIN 12.9 GM/dL (10.7-15.3); MCH 31.8 pg (25.7-33.7); MCHC 33.4 g/dl (32.0-36.0); MEAN CELL VOLUME 95.1 fl (80-96); MEAN PLT VOLUME 8.7 fl (7.5-11.1); PLATELET COUNT 239 10^3/uL (134-434); RBC 4.06 M/mm3 (3.60-5.2); RDW 14.1 % (11.6-15.6)
[2022-02-11 11:02] LABS: EPI CELLS >36 /uL (0-25.1); HYALINE CASTS 2 /uL (0-3.1); PH,URINE 5.5 (5.0-8.0); URINE APPEARANCE CLEAR; URINE BACTERIA 408 /uL (0-1359); URINE BILIRUBIN NEGATIVE (NEGATIVE); URINE COLOR YELLOW; URINE GLUCOSE (UA) NEGATIVE (NEGATIVE); URINE KETONE TRACE (NEGATIVE); URINE LEUK ESTERASE TRACE (NEGATIVE); URINE NITRITE NEGATIVE (NEGATIVE); URINE PROTEIN NEGATIVE (NEGATIVE); URINE RBC 5 /uL (0-23.9); URINE WBC 40 /uL (0-25.8)
[2022-02-11 11:15] LABS: CALCIUM 8.1 mg/dL (8.5-10.1)
[2022-02-11 11:17] LABS: ALBUMIN 2.7 g/dl (3.4-5.0); BLOOD UREA NITROGEN 12.4 mg/dL (7-18)
[2022-02-11 11:20] LABS: CREATININE 0.8 mg/dL (0.55-1.3)
[2022-02-11 11:22] LABS: BILIRUBIN,TOTAL 0.4 mg/dL (0.2-1)
[2022-02-11] MEDS: ISOSORBIDE MONONITRATE 30 MG TAB.SR.24H (FP) PO SCH (11:22)
[2022-02-11] MEDS: ENALAPRIL MALEATE 10 MG TABLET PO SCH ×2 (11:22→23:16)
[2022-02-11] MEDS: PRENATAL VITAMINS W/ FOLIC ACID TABLET (FP) PO SCH (11:22)
[2022-02-11] MEDS: ASPIRIN COATED 81 MG TABLET.EC PO SCH (11:22)
[2022-02-11] MEDS: IBUPROFEN 400 MG TABLET (FP) PO PRN (11:25)
[2022-02-11] MEDS: guaiFENesin 200 MG/10 ML 10 ML UNIT-DOSE CUPS PO PRN ×2 (11:26→20:04)
[2022-02-11] MEDS ORDERED: DIVALPROEX NA *ER* EXTEND REL 500 MG TABLET.SA (FP) PO SCH (13:45)
[2022-02-11] MEDS: DIVALPROEX SODIUM 500 MG TABLET E.C. PO SCH ×2 (14:36→23:16)
[2022-02-11] MEDS: ACETAMINOPHEN 325 MG TABLET (FP) PO PRN (20:04)
[2022-02-11] MEDS: ATORVASTATIN CA 10 MG TABLET (FP) PO SCH (23:16)
[2022-02-11] MEDS: THIAMINE HCL 100 MG TABLET (FP) PO SCH (23:17)
[2022-02-12] MEDS: metFORMIN HCL 500 MG TABLET (FP) PO SCH ×2 (06:36→17:27)
[2022-02-12] MEDS: INSULIN SLIDING SCALE (NOVOLOG) 1 VIAL SQ SCH ×4 (07:37→22:26)
[2022-02-12] MEDS: ASPIRIN COATED 81 MG TABLET.EC PO SCH (11:08)
[2022-02-12] MEDS: DIVALPROEX SODIUM 500 MG TABLET E.C. PO SCH ×2 (11:08→22:25)
[2022-02-12] MEDS: ENALAPRIL MALEATE 10 MG TABLET PO SCH ×2 (11:09→22:25)
[2022-02-12] MEDS: PRENATAL VITAMINS W/ FOLIC ACID TABLET (FP) PO SCH (11:09)
[2022-02-12] MEDS: ISOSORBIDE MONONITRATE 30 MG TAB.SR.24H (FP) PO SCH (11:11)
[2022-02-12] MEDS: guaiFENesin 200 MG/10 ML 10 ML UNIT-DOSE CUPS PO PRN ×2 (11:12→17:29)
[2022-02-12] MEDS: ACETAMINOPHEN 325 MG TABLET (FP) PO PRN (11:14)
[2022-02-12] MEDS: FLUoxetine HCL 20 MG CAPSULE PO SCH (15:45)
[2022-02-12] MEDS ORDERED: METHYL SALICYLATE/MENTHOL OINT 30 GM TUBE TP SCH (22:00)
[2022-02-12] MEDS: ARTIFICIAL TEARS (POLYVINYL ALCOHOL) OPTH DROPS OU SCH (22:24)
[2022-02-12] MEDS: METHYL SALICYLATE/MENTHOL OINT 30 GM TUBE TP SCH (22:24)
[2022-02-12] MEDS: BENZTROPINE MESYLATE 1 MG TABLET PO SCH (22:25)
[2022-02-12] MEDS: traZODone HCL 50 MG TABLET (FP) PO SCH (22:25)
[2022-02-12] MEDS: THIAMINE HCL 100 MG TABLET (FP) PO SCH (22:25)
[2022-02-12] MEDS: ATORVASTATIN CA 10 MG TABLET (FP) PO SCH (22:25)
[2022-02-12] MEDS: risperiDONE 2 MG TABLET PO SCH (22:26)
[2022-02-13] MEDS: ARTIFICIAL TEARS (POLYVINYL ALCOHOL) OPTH DROPS OU SCH ×3 (06:32→21:08)
[2022-02-13] MEDS: metFORMIN HCL 500 MG TABLET (FP) PO SCH ×2 (06:32→17:27)
[2022-02-13] MEDS: INSULIN SLIDING SCALE (NOVOLOG) 1 VIAL SQ SCH ×4 (06:34→21:51)
[2022-02-13] MEDS: guaiFENesin 200 MG/10 ML 10 ML UNIT-DOSE CUPS PO PRN ×3 (06:35→21:10)
[2022-02-13] MEDS: ASPIRIN COATED 81 MG TABLET.EC PO SCH (10:32)
[2022-02-13] MEDS: DIVALPROEX SODIUM 500 MG TABLET E.C. PO SCH ×2 (10:32→21:07)
[2022-02-13] MEDS: BENZTROPINE MESYLATE 1 MG TABLET PO SCH ×2 (10:33→21:07)
[2022-02-13] MEDS: FLUoxetine HCL 20 MG CAPSULE PO SCH (10:33)
[2022-02-13] MEDS: PRENATAL VITAMINS W/ FOLIC ACID TABLET (FP) PO SCH (10:33)
[2022-02-13] MEDS: ACETAMINOPHEN 325 MG TABLET (FP) PO PRN (10:34)
[2022-02-13] MEDS: METHYL SALICYLATE/MENTHOL OINT 30 GM TUBE TP SCH ×2 (10:35→21:09)
[2022-02-13] MEDS: risperiDONE 2 MG TABLET PO SCH ×2 (10:37→21:07)
[2022-02-13] MEDS: ENALAPRIL MALEATE 10 MG TABLET PO SCH ×2 (13:50→21:07)
[2022-02-13] MEDS: ISOSORBIDE MONONITRATE 30 MG TAB.SR.24H (FP) PO SCH (13:53)
[2022-02-13] MEDS: MELATONIN 5 MG TABLETS PO PRN (21:07)
[2022-02-13] MEDS: ATORVASTATIN CA 10 MG TABLET (FP) PO SCH (21:07)
[2022-02-13] MEDS: THIAMINE HCL 100 MG TABLET (FP) PO SCH (21:07)
[2022-02-13] MEDS: traZODone HCL 50 MG TABLET (FP) PO SCH (21:08)
[2022-02-13 23:17] VITALS: RESP 18
[2022-02-14] MEDS: ARTIFICIAL TEARS (POLYVINYL ALCOHOL) OPTH DROPS OU SCH ×3 (07:04→22:09)
[2022-02-14] MEDS: ACETAMINOPHEN 325 MG TABLET (FP) PO PRN ×2 (07:06→11:09)
[2022-02-14] MEDS: metFORMIN HCL 500 MG TABLET (FP) PO SCH ×2 (07:07→17:01)
[2022-02-14] MEDS: guaiFENesin 200 MG/10 ML 10 ML UNIT-DOSE CUPS PO PRN ×2 (07:07→11:12)
[2022-02-14] MEDS: INSULIN SLIDING SCALE (NOVOLOG) 1 VIAL SQ SCH ×4 (07:09→21:13)
[2022-02-14] MEDS: DIVALPROEX SODIUM 500 MG TABLET E.C. PO SCH ×2 (11:05→21:11)
[2022-02-14] MEDS: PRENATAL VITAMINS W/ FOLIC ACID TABLET (FP) PO SCH (11:05)
[2022-02-14] MEDS: BENZTROPINE MESYLATE 1 MG TABLET PO SCH ×2 (11:05→21:12)
[2022-02-14] MEDS: FLUoxetine HCL 20 MG CAPSULE PO SCH (11:05)
[2022-02-14] MEDS: ISOSORBIDE MONONITRATE 30 MG TAB.SR.24H (FP) PO SCH (11:05)
[2022-02-14] MEDS: ASPIRIN COATED 81 MG TABLET.EC PO SCH (11:05)
[2022-02-14] MEDS: risperiDONE 2 MG TABLET PO SCH ×2 (11:07→21:11)
[2022-02-14] MEDS: METHYL SALICYLATE/MENTHOL OINT 30 GM TUBE TP SCH ×2 (11:14→22:09)
[2022-02-14] MEDS: ENALAPRIL MALEATE 10 MG TABLET PO SCH ×2 (11:14→21:11)
[2022-02-14] MEDS: HYDROCORTISONE 2.5% TOPICAL CREAM 30 GM TUBE TP SCH ×2 (14:46→22:09)
[2022-02-14] MEDS: BENZOCAINE/MENTHOL (CHLORASEPTIC ) LOZENGE MM PRN (15:27)
[2022-02-14] MEDS: THIAMINE HCL 100 MG TABLET (FP) PO SCH (21:11)
[2022-02-14] MEDS: ATORVASTATIN CA 10 MG TABLET (FP) PO SCH (21:11)
[2022-02-14] MEDS: traZODone HCL 50 MG TABLET (FP) PO SCH (21:12)
[2022-02-15] MEDS: INSULIN SLIDING SCALE (NOVOLOG) 1 VIAL SQ SCH ×4 (07:30→21:41)
[2022-02-15] MEDS: metFORMIN HCL 500 MG TABLET (FP) PO SCH ×2 (07:30→17:02)
[2022-02-15] MEDS: ARTIFICIAL TEARS (POLYVINYL ALCOHOL) OPTH DROPS OU SCH ×3 (07:30→21:39)
[2022-02-15] MEDS ORDERED: INSULIN (NOVOLOG) ASPART 100 UNITS/ML 10ML VIAL ONE (07:44)
[2022-02-15] MEDS: PRENATAL VITAMINS W/ FOLIC ACID TABLET (FP) PO SCH (10:52)
[2022-02-15] MEDS: ASPIRIN COATED 81 MG TABLET.EC PO SCH (10:53)
[2022-02-15] MEDS: FLUoxetine HCL 20 MG CAPSULE PO SCH (10:53)
[2022-02-15] MEDS: risperiDONE 2 MG TABLET PO SCH ×2 (10:53→21:41)
[2022-02-15] MEDS: DIVALPROEX SODIUM 500 MG TABLET E.C. PO SCH ×2 (10:53→21:38)
[2022-02-15] MEDS: BENZTROPINE MESYLATE 1 MG TABLET PO SCH ×2 (10:53→21:38)
[2022-02-15] MEDS: METHYL SALICYLATE/MENTHOL OINT 30 GM TUBE TP SCH ×2 (10:54→21:39)
[2022-02-15] MEDS: HYDROCORTISONE 2.5% TOPICAL CREAM 30 GM TUBE TP SCH ×2 (10:55→21:35)
[2022-02-15] MEDS: ACETAMINOPHEN 325 MG TABLET (FP) PO PRN (10:57)
[2022-02-15] MEDS: ISOSORBIDE MONONITRATE 30 MG TAB.SR.24H (FP) PO SCH (11:03)
[2022-02-15] MEDS: ENALAPRIL MALEATE 10 MG TABLET PO SCH ×2 (14:06→21:38)
[2022-02-15] MEDS: traZODone HCL 50 MG TABLET (FP) PO SCH (21:38)
[2022-02-15] MEDS: THIAMINE HCL 100 MG TABLET (FP) PO SCH (21:38)
[2022-02-15] MEDS: ATORVASTATIN CA 10 MG TABLET (FP) PO SCH (21:38)
[2022-02-15] MEDS ORDERED: NICOTINE 10 MG CARTRIDGE (INHALER) IH PRN (21:40)
[2022-02-16] MEDS: metFORMIN HCL 500 MG TABLET (FP) PO SCH ×2 (06:46→17:14)
[2022-02-16] MEDS: ARTIFICIAL TEARS (POLYVINYL ALCOHOL) OPTH DROPS OU SCH ×3 (06:46→21:58)
[2022-02-16] MEDS: ACETAMINOPHEN 325 MG TABLET (FP) PO PRN (06:48)
[2022-02-16] MEDS: INSULIN SLIDING SCALE (NOVOLOG) 1 VIAL SQ SCH ×4 (06:49→21:11)
[2022-02-16] MEDS: PRENATAL VITAMINS W/ FOLIC ACID TABLET (FP) PO SCH (10:47)
[2022-02-16] MEDS: guaiFENesin 200 MG/10 ML 10 ML UNIT-DOSE CUPS PO PRN (10:48)
[2022-02-16] MEDS: DIVALPROEX SODIUM 500 MG TABLET E.C. PO SCH ×2 (10:48→21:06)
[2022-02-16] MEDS: FLUoxetine HCL 20 MG CAPSULE PO SCH (10:48)
[2022-02-16] MEDS: ASPIRIN COATED 81 MG TABLET.EC PO SCH (10:48)
[2022-02-16] MEDS: risperiDONE 2 MG TABLET PO SCH ×2 (10:48→21:07)
[2022-02-16] MEDS: METHYL SALICYLATE/MENTHOL OINT 30 GM TUBE TP SCH ×2 (10:49→21:58)
[2022-02-16] MEDS: ENALAPRIL MALEATE 10 MG TABLET PO SCH ×2 (10:49→21:07)
[2022-02-16] MEDS: BENZTROPINE MESYLATE 1 MG TABLET PO SCH ×2 (10:49→21:07)
[2022-02-16] MEDS: ISOSORBIDE MONONITRATE 30 MG TAB.SR.24H (FP) PO SCH (10:49)
[2022-02-16] MEDS: IBUPROFEN 400 MG TABLET (FP) PO PRN (10:50)
[2022-02-16] MEDS: HYDROCORTISONE 2.5% TOPICAL CREAM 30 GM TUBE TP SCH (10:50)
[2022-02-16] MEDS: BENZOCAINE/MENTHOL (CHLORASEPTIC ) LOZENGE MM PRN (15:06)
[2022-02-16] MEDS: THIAMINE HCL 100 MG TABLET (FP) PO SCH (21:06)
[2022-02-16] MEDS: ATORVASTATIN CA 10 MG TABLET (FP) PO SCH (21:06)
[2022-02-16] MEDS: traZODone HCL 50 MG TABLET (FP) PO SCH (21:07)
[2022-02-16] MEDS: PHENYLEPHRINE 0.25%/STARCH 1 EACH SUPP.RECT RC SCH (21:58)
[2022-02-17] MEDS: ARTIFICIAL TEARS (POLYVINYL ALCOHOL) OPTH DROPS OU SCH ×3 (06:40→22:35)
[2022-02-17] MEDS: metFORMIN HCL 500 MG TABLET (FP) PO SCH ×2 (06:40→16:57)
[2022-02-17] MEDS: INSULIN SLIDING SCALE (NOVOLOG) 1 VIAL SQ SCH ×4 (06:40→22:35)
[2022-02-17] MEDS: ACETAMINOPHEN 325 MG TABLET (FP) PO PRN (07:09)
[2022-02-17] MEDS: FLUoxetine HCL 20 MG CAPSULE PO SCH (10:31)
[2022-02-17] MEDS: PRENATAL VITAMINS W/ FOLIC ACID TABLET (FP) PO SCH (10:31)
[2022-02-17] MEDS: ASPIRIN COATED 81 MG TABLET.EC PO SCH (10:31)
[2022-02-17] MEDS: DIVALPROEX SODIUM 500 MG TABLET E.C. PO SCH ×2 (10:31→22:32)
[2022-02-17] MEDS: ENALAPRIL MALEATE 10 MG TABLET PO SCH ×2 (10:32→22:34)
[2022-02-17] MEDS: risperiDONE 2 MG TABLET PO SCH ×2 (10:32→22:34)
[2022-02-17] MEDS: PHENYLEPHRINE 0.25%/STARCH 1 EACH SUPP.RECT RC SCH ×2 (10:32→22:35)
[2022-02-17] MEDS: ISOSORBIDE MONONITRATE 30 MG TAB.SR.24H (FP) PO SCH (10:32)
[2022-02-17] MEDS: BENZTROPINE MESYLATE 1 MG TABLET PO SCH ×2 (10:33→22:31)
[2022-02-17] MEDS: METHYL SALICYLATE/MENTHOL OINT 30 GM TUBE TP SCH ×2 (10:33→22:35)
[2022-02-17] MEDS: BENZOCAINE/MENTHOL (CHLORASEPTIC ) LOZENGE MM PRN (15:00)
[2022-02-17] MEDS ORDERED: hydrOXYzine PAMOATE 25 MG CAPSULE (FP) PO PRN (19:59)
[2022-02-17] MEDS ORDERED: INSULIN (NOVOLOG) ASPART 100 UNITS/ML 10ML VIAL ONE (20:48)
[2022-02-17] MEDS: THIAMINE HCL 100 MG TABLET (FP) PO SCH (22:32)
[2022-02-17] MEDS: ATORVASTATIN CA 10 MG TABLET (FP) PO SCH (22:32)
[2022-02-17] MEDS: traZODone HCL 50 MG TABLET (FP) PO SCH (22:32)
[2022-02-18] MEDS: metFORMIN HCL 500 MG TABLET (FP) PO SCH ×2 (08:03→16:56)
[2022-02-18] MEDS: INSULIN SLIDING SCALE (NOVOLOG) 1 VIAL SQ SCH ×3 (08:03→16:57)
[2022-02-18] MEDS: ARTIFICIAL TEARS (POLYVINYL ALCOHOL) OPTH DROPS OU SCH ×2 (08:03→14:09)
[2022-02-18] MEDS: METHYL SALICYLATE/MENTHOL OINT 30 GM TUBE TP SCH (10:56)
[2022-02-18] MEDS: PRENATAL VITAMINS W/ FOLIC ACID TABLET (FP) PO SCH (10:56)
[2022-02-18] MEDS: DIVALPROEX SODIUM 500 MG TABLET E.C. PO SCH (10:56)
[2022-02-18] MEDS: BENZTROPINE MESYLATE 1 MG TABLET PO SCH (10:56)
[2022-02-18] MEDS: PHENYLEPHRINE 0.25%/STARCH 1 EACH SUPP.RECT RC SCH (10:56)
[2022-02-18] MEDS: FLUoxetine HCL 20 MG CAPSULE PO SCH (10:56)
[2022-02-18] MEDS: ASPIRIN COATED 81 MG TABLET.EC PO SCH (10:58)
[2022-02-18] MEDS: risperiDONE 2 MG TABLET PO SCH (12:16)
[2022-02-18] MEDS: ENALAPRIL MALEATE 10 MG TABLET PO SCH (12:16)
[2022-02-18] MEDS: ISOSORBIDE MONONITRATE 30 MG TAB.SR.24H (FP) PO SCH (12:17)
[2022-02-18] MEDS ORDERED: LORazepam 2 MG/ML SDV VIAL IVPUSH ONE (20:30)
[2022-02-18 22:31] VITALS: BP 132/68; PULSE 68
[2022-02-18 22:33] LABS: HIV INTERPRETATION NEGATIVE (NEGATIVE)
[2022-02-18 22:44] VITALS: TEMP 97.3
== END 2022-02-18 20:04 | disposition left against medical advice (07) | DRG 770 ==
LOC: YASAS 15:52 → Y5N 17:40
PROVIDERS: ADMIT Allergy & Immunology; ATTEND Psychiatry & Neurology Pain Medicine
PROC: HZ42ZZZ Group Counseling for Substance Abuse Treatment, Cognitive-Behavioral (ICD-10-PCS; principal; 2022-02-10)
DX: F10.20 Alcohol dependence, uncomplicated (principal); F14.20 Cocaine dependence, uncomplicated; F17.210 Nicotine dependence, cigarettes, uncomplicated; F25.9 Schizoaffective disorder, unspecified; I10 Essential (primary) hypertension; E78.5 Hyperlipidemia, unspecified; E11.9 Type 2 diabetes mellitus without complications; Z79.84 Long term (current) use of oral hypoglycemic drugs; M17.0 Bilateral primary osteoarthritis of knee; M19.071 Primary osteoarthritis, right ankle and foot; M19.072 Primary osteoarthritis, left ankle and foot; K64.9 Unspecified hemorrhoids; R68.2 Dry mouth, unspecified; Z86.19 Personal history of other infectious and parasitic diseases; Z99.89 Dependence on other enabling machines and devices
CPT/HCPCS: 36415; 80053; 80164; 81003; 82962; 85027; 86593; 86780; 87389; C9803-CS; U0003; U0005

== ENCOUNTER 2022-07-19 16:19 | Inpatient (IN) | payer BC, OTHER ==
[2022-07-19 17:24] VITALS: BMI 51.7
[2022-07-19] MEDS ORDERED: POLYETHYLENE GLYCOL (HEALTHYLAX) 3350 17 GM PACKET PO PRN (18:55)
[2022-07-19] MEDS ORDERED: METHOCARBAMOL 500 MG TABLET PO PRN (18:55)
[2022-07-19] MEDS ORDERED: ONDANSETRON *ODT* 4 MG TABLET SL PRN (18:55)
[2022-07-19] MEDS ORDERED: NICOTINE 10 MG CARTRIDGE (INHALER) IH PRN (18:55)
[2022-07-19] MEDS ORDERED: IBUPROFEN 400 MG TABLET (FP) PO PRN (18:55)
[2022-07-19] MEDS ORDERED: MAG HYDROX/AL HYDROX/SIMETH 30 ML UNIT-DOSE CUP PO PRN (18:55)
[2022-07-19] MEDS ORDERED: BISMUTH SUBSALICYLATE 524 MG/30 ML PO PRN (18:55)
[2022-07-19] MEDS ORDERED: LOPERAMIDE HCL 2 MG CAPSULE PO PRN (18:55)
[2022-07-19] MEDS ORDERED: hydrOXYzine PAMOATE 25 MG CAPSULE (FP) PO PRN (18:55)
[2022-07-19] MEDS ORDERED: ACETAMINOPHEN 325 MG TABLET (FP) PO PRN ×2 (18:55)
[2022-07-19] MEDS ORDERED: BENZOCAINE/MENTHOL (CHLORASEPTIC ) LOZENGE MM PRN (18:55)
[2022-07-19] MEDS ORDERED: NICOTINE POLACRILEX 2 MG GUM BUC PRN (18:55)
[2022-07-19] MEDS ORDERED: MAGNESIUM HYDROX 2400MG/30ML ORAL SUSPENSION 30 ML CUP PO PRN (18:55)
[2022-07-19] MEDS ORDERED: NALOXONE HCL (KLOXXADO) 8 MG SPRAY NS PRN (18:55)
[2022-07-19] MEDS ORDERED: DICYCLOMINE HCL 10 MG CAPSULE PO PRN (18:55)
[2022-07-19] MEDS ORDERED: IBUPROFEN 600 MG TABLET (FP) PO PRN (18:55)
[2022-07-19] MEDS: MELATONIN 5 MG TABLETS PO SCH (22:36)
[2022-07-19] MEDS: THIAMINE HCL 100 MG TABLET (FP) PO SCH (22:36)
[2022-07-20] MEDS: INSULIN SLIDING SCALE (NOVOLOG) 1 VIAL SQ SCH ×3 (06:27→16:56)
[2022-07-20] MEDS: PRENATAL VITAMINS W/ FOLIC ACID TABLET (FP) PO SCH (10:26)
[2022-07-20 11:28] LABS: HEMOGLOBIN 15.2 GM/dL (10.7-15.3); MCH 31.4 pg (25.7-33.7); MCHC 32.4 g/dl (32.0-36.0); MEAN CELL VOLUME 96.9 fl (80-96); MEAN PLT VOLUME 9.7 fl (7.5-11.1); PLATELET COUNT 207 10^3/uL (134-434); RBC 4.85 M/mm3 (3.60-5.2); RDW 13.7 % (11.6-15.6); WHITE BLOOD COUNT 6.2 K/mm3 (4.0-10.0)
[2022-07-20 15:19] LABS: CALCIUM 8.3 mg/dL (8.5-10.1)
[2022-07-20 15:20] LABS: ALBUMIN 2.8 g/dl (3.4-5.0); BLOOD UREA NITROGEN 14.9 mg/dL (7-18)
[2022-07-20 15:23] LABS: CREATININE 0.8 mg/dL (0.55-1.3)
[2022-07-20 15:24] LABS: BILIRUBIN,TOTAL 0.3 mg/dL (0.2-1); TOT PROT 6.6 g/dl (6.4-8.2)
[2022-07-20 15:43] LABS: EPI CELLS >36 /uL (0-25.1); HYALINE CASTS 5 /uL (0-3.1); PH,URINE 6.5 (5.0-8.0); URINE APPEARANCE CLOUDY; URINE BACTERIA 1038 /uL (0-1359); URINE BILIRUBIN NEGATIVE (NEGATIVE); URINE COLOR YELLOW; URINE GLUCOSE (UA) NEGATIVE (NEGATIVE); URINE KETONE TRACE (NEGATIVE); URINE LEUK ESTERASE 2+ (NEGATIVE); URINE NITRITE NEGATIVE (NEGATIVE); URINE PROTEIN NEGATIVE (NEGATIVE); URINE WBC 139 /uL (0-25.8)
[2022-07-20 16:04] LABS: URINE RBC 19 /uL (0-23.9)
[2022-07-20] MEDS: MELATONIN 5 MG TABLETS PO SCH (22:43)
[2022-07-20] MEDS: BENZTROPINE MESYLATE 1 MG TABLET PO SCH (22:44)
[2022-07-20] MEDS: DIVALPROEX SODIUM 500 MG TABLET E.C. PO SCH (22:44)
[2022-07-20] MEDS: risperiDONE 1 MG TABLET PO SCH (22:44)
[2022-07-20] MEDS: THIAMINE HCL 100 MG TABLET (FP) PO SCH (22:46)
[2022-07-21] MEDS: INSULIN SLIDING SCALE (NOVOLOG) 1 VIAL SQ SCH (07:30)
[2022-07-21 09:49] VITALS: BP 138/61; PULSE 85; RESP 20; TEMP 96
[2022-07-21] MEDS: risperiDONE 1 MG TABLET PO SCH (10:39)
[2022-07-21] MEDS: PRENATAL VITAMINS W/ FOLIC ACID TABLET (FP) PO SCH (10:39)
[2022-07-21] MEDS: DIVALPROEX SODIUM 500 MG TABLET E.C. PO SCH (10:39)
[2022-07-21] MEDS: BENZTROPINE MESYLATE 1 MG TABLET PO SCH (10:40)
== END 2022-07-21 13:22 | disposition home or self-care (01) | DRG 774 ==
LOC: YASAS 16:19 → Y3N 19:16 → UNDOADMIN 19:16
PROVIDERS: ADMIT Allergy & Immunology; ATTEND Surgery
PROC: HZ2ZZZZ Detoxification Services for Substance Abuse Treatment (ICD-10-PCS; principal; 2022-07-19)
DX: F10.230 Alcohol dependence with withdrawal, uncomplicated (principal); F14.20 Cocaine dependence, uncomplicated; F17.210 Nicotine dependence, cigarettes, uncomplicated; F25.9 Schizoaffective disorder, unspecified; E78.2 Mixed hyperlipidemia; E11.59 Type 2 diabetes mellitus with other circulatory complications; Z79.84 Long term (current) use of oral hypoglycemic drugs; M54.50 Low back pain, unspecified; G89.29 Other chronic pain; E66.01 Morbid (severe) obesity due to excess calories; Z68.43 Body mass index [BMI] 50.0-59.9, adult; R26.89 Other abnormalities of gait and mobility; Z99.89 Dependence on other enabling machines and devices; Z86.19 Personal history of other infectious and parasitic diseases; Z88.8 Allergy status to other drugs, medicaments and biological substances
CPT/HCPCS: 36415; 80053; 80164; 81003; 82962; 85027; 86593; 86780; 87811; C9803-CS; Q0162; U0003; U0005